=== PATIENT | female | born 1960 | race Caucasian/White ===

== ENCOUNTER 2018-03-17 16:23 | Emergency (ER) | payer BC ==
[~2018-03-17] VITALS: Ht 157.5 cm; Wt 58.1 kg
[2018-03-17] MEDS ORDERED: ASPIRIN325 PO (16:34)
[2018-03-17] MEDS ORDERED: BUTALB-APAP-CA1 EACH PO (16:35)
[2018-03-17] MEDS ORDERED: LOMOTIL TABLET1 EACH PO (16:35)
[2018-03-17] MEDS ORDERED: ZOCOR20 MG PO (16:35)
[2018-03-17] MEDS ORDERED: ADVIL200 M1 PO (16:36)
[2018-03-17] MEDS ORDERED: HYDROCODON-ACE1 EAC5 PO (16:36)
[2018-03-17] MEDS ORDERED: TUMS PO (16:36)
[2018-03-17] MEDS ORDERED: NAPROSYN500 M1 PO (17:43)
[2018-03-17 18:03] VITALS: BP 141/81
== END 2018-03-17 18:04 | disposition home or self-care (01) ==
LOC: M.ERS 16:23
DX: S23.3XXA Sprain of ligaments of thoracic spine, initial encounter (principal); M25.531 Pain in right wrist; G43.909 Migraine, unspecified, not intractable, without status migrainosus; E78.00 Pure hypercholesterolemia, unspecified; F32.9 Major depressive disorder, single episode, unspecified; F17.210 Nicotine dependence, cigarettes, uncomplicated; W18.39XA Other fall on same level, initial encounter; Y93.89 Activity, other specified; Y92.89 Other specified places as the place of occurrence of the external cause; Y99.8 Other external cause status